=== PATIENT | male | born 1970 | race Caucasian/White ===

== ENCOUNTER 2020-10-31 10:00 | Inpatient (IN) ==
[2020-10-31] MEDS ORDERED: ONDANSETRON 4 MG/2 ML VIAL IV STA (12:59)
[2020-10-31] MEDS ORDERED: SODIUM CHLORIDE 0.9% 1,000 ML IV STA (12:59)
[2020-10-31] MEDS ORDERED: MORPHINE 2 MG/1 ML SYRINGE IV STA (13:00)
[2020-10-31] MEDS ORDERED: METOCLOPRAMIDE 10 MG/2 ML VIAL IV STA (13:00)
[2020-10-31 13:09] LABS: Basophils # 0.1 10*3/uL (0.0-0.2); Basophils % 0.4 % (0.0-0.8); Eosinophils % 0.2 % (0.00-10.9); Hematocrit 48.1 VOL% (42.0-52.0); Hemoglobin 15.6 GM/DL (14.0-18.0); Immature Granulocytes % 0.4 %; Immature Granulocytes Absolute 0.05 #; Lymphocytes # 1.1 10*3/uL (1.4-4.0); Mean Corpuscular HGB Conc 32.4 GM/DL (32-36); Mean Corpuscular Volume 84.7 FL (87-102); Mean Platelet Volume 9.9 FL (9.6-12.0); Monocytes % 4.7 % (1.7-12.7); Neutrophils % 86.3 % (38.7-73.9); Platelet Count 265 T/CUMM (130-400); Red Blood Count 5.68 MC/CUMM (3.8-5.5); Red Cell Distribution Width 14.1 % (9.3-17.3); White Blood Count 13.1 T/CUMM (4-12)
[2020-10-31 13:29] LABS: Albumin 3.7 G/DL (3.4-5.0); Bilirubin,Total 0.7 MG/DL (0.20-1.00); Calcium 9.3 MG/DL (8.5-10.1); Osmolality,Calculated 275.8 MOS/KG (273-304); Potassium 4.2 MMOL/L (3.5-5.1)
[2020-10-31 15:43] LABS: INR 2.4
[2020-10-31] MEDS ORDERED: HYDROmorphone 2 MG/1 ML VIAL IV PRN ×2 (15:49)
[2020-10-31] MEDS ORDERED: ONDANSETRON 4 MG/2 ML VIAL IV PRN (15:49)
[2020-10-31] MEDS ORDERED: BISACODYL 5 MG TABLET PO PRN (15:49)
[2020-10-31] MEDS ORDERED: KETOROLAC 30 MG/1 ML VIAL IV PRN (15:58)
[2020-10-31 16:08] LABS: PT Patient Result 25.5 SECS (10.5-12.0)
[2020-10-31] MEDS ORDERED: SODIUM CHLORIDE 0.9% 1,000 ML IV PRN ×2 (16:32→16:34)
[2020-10-31] MEDS ORDERED: GLUCAGON 1 MG VIAL IM PRN (16:34)
[2020-10-31] MEDS ORDERED: DEXTROSE 50% 25 GM/50 ML VIAL IV PRN (16:34)
[2020-10-31 17:26] LABS: Bilirubin,Urine Negative (Negative); Blood, Urine Negative (Negative); Glucose,Urine (UA) Negative (Negative); Ketones,Urine Negative (Negative); Mucus,Urine Occasional /LPF (Occasional); Nitrite,Urine Negative (Negative); Protein,Urine Negative; Urine Appearance CLEAR (Clear); Urine Color Yellow (Yellow); Urine Specific Gravity 1.024 (1.001-1.035); Urine Urobilinogen < 2.0 EU/DL (0.2-1.0)
[2020-10-31] MEDS: LACTATED RINGERS 1,000 ML IV SCH (18:18)
[2020-10-31] MEDS: INSULIN REGULAR 100 UNIT/ML SUBCUT SCH (23:03)
[2020-11-01 05:00] LABS: Basophils % 0.5 % (0.0-0.8); Eosinophils # 0.1 10*3/uL (0.0-0.87); Eosinophils % 0.9 % (0.00-10.9); Hemoglobin 13.8 GM/DL (14.0-18.0); Immature Granulocytes % 0.4 %; Immature Granulocytes Absolute 0.03 #; Lymphocytes # 1.5 10*3/uL (1.4-4.0); Lymphocytes % 18.7 % (21.2-54.2); Mean Corpuscular HGB Conc 32.1 GM/DL (32-36); Mean Corpuscular Volume 86.7 FL (87-102); Mean Platelet Volume 9.7 FL (9.6-12.0); Neutrophils % 71.5 % (38.7-73.9); Platelet Count 231 T/CUMM (130-400); Red Blood Count 4.96 MC/CUMM (3.8-5.5); Red Cell Distribution Width 14.4 % (9.3-17.3); White Blood Count 8.2 T/CUMM (4-12)
[2020-11-01 05:20] LABS: INR 1.7; PT Patient Result 18.3 SECS (10.5-12.0)
[2020-11-01 05:26] LABS: Osmolality,Calculated 279.5 MOS/KG (273-304); Potassium 3.9 MMOL/L (3.5-5.1)
[2020-11-01] MEDS: INSULIN REGULAR 100 UNIT/ML SUBCUT SCH ×4 (10:41→21:35)
[2020-11-01] MEDS: LACTATED RINGERS 1,000 ML IV SCH ×4 (10:41→23:08)
[2020-11-01] MEDS: PANTOPRAZOLE 40 MG TABLET PO SCH (10:43)
[2020-11-01] MEDS: ACETAMINOPHEN 325 MG TABLET PO PRN (10:53)
[2020-11-01] MEDS ORDERED: DEXTROSE 50% 25 GM/50 ML VIAL IV PRN (14:20)
[2020-11-01] MEDS ORDERED: GLUCAGON 1 MG VIAL IM PRN (14:20)
[2020-11-01] MEDS: cloNIDine 0.1 MG TABLET PO SCH (21:47)
[2020-11-01] MEDS: EZETIMIBE 10 MG TABLET PO SCH (21:47)
[2020-11-01] MEDS: HydrOXYzine PAMOATE 50 MG CAPSULE PO PRN (23:05)
[2020-11-02] MEDS: ACETAMINOPHEN 325 MG TABLET PO PRN (04:45)
[2020-11-02 04:56] LABS: Basophils % 0.4 % (0.0-0.8); Eosinophils # 0.1 10*3/uL (0.0-0.87); Eosinophils % 1.8 % (0.00-10.9); Hematocrit 43.1 VOL% (42.0-52.0); Hemoglobin 13.6 GM/DL (14.0-18.0); Immature Granulocytes % 0.4 %; Immature Granulocytes Absolute 0.03 #; Lymphocytes # 1.3 10*3/uL (1.4-4.0); Lymphocytes % 19.1 % (21.2-54.2); Mean Corpuscular HGB Conc 31.6 GM/DL (32-36); Mean Corpuscular Volume 87.8 FL (87-102); Mean Platelet Volume 9.9 FL (9.6-12.0); Monocytes % 6.5 % (1.7-12.7); Neutrophils % 71.8 % (38.7-73.9); Platelet Count 220 T/CUMM (130-400); Red Blood Count 4.91 MC/CUMM (3.8-5.5); Red Cell Distribution Width 14.1 % (9.3-17.3); White Blood Count 6.8 T/CUMM (4-12)
[2020-11-02 05:12] LABS: INR 1.5; PT Patient Result 16.1 SECS (10.5-12.0)
[2020-11-02 05:29] LABS: Calcium 8.9 MG/DL (8.5-10.1); Osmolality,Calculated 280.4 MOS/KG (273-304); Potassium 3.9 MMOL/L (3.5-5.1)
[2020-11-02] MEDS: ENOXAPARIN 40 MG/0.4 ML SYRINGE SUBCUT SCH (08:03)
[2020-11-02] MEDS: OMEGA 3 ACID ETHYL ESTERS 1 GM CAPSULE PO SCH (08:04)
[2020-11-02] MEDS: VENLAFAXINE XR 75 MG CAPSULE PO SCH (08:04)
[2020-11-02] MEDS: INSULIN REGULAR 100 UNIT/ML SUBCUT SCH ×4 (08:04→21:37)
[2020-11-02] MEDS: PANTOPRAZOLE 40 MG TABLET PO SCH (08:04)
[2020-11-02] MEDS: ROSUVASTATIN 10 MG TABLET PO SCH (08:04)
[2020-11-02] MEDS: LACTATED RINGERS 1,000 ML IV SCH ×2 (08:04→17:27)
[2020-11-02] MEDS: lisinopriL 5 MG TABLET PO SCH (08:04)
[2020-11-02] MEDS: cloNIDine 0.1 MG TABLET PO SCH (21:36)
[2020-11-02] MEDS: EZETIMIBE 10 MG TABLET PO SCH (21:36)
[2020-11-02] MEDS: HydrOXYzine PAMOATE 50 MG CAPSULE PO PRN (21:36)
[2020-11-03] MEDS: LACTATED RINGERS 1,000 ML IV SCH (04:53)
[2020-11-03 07:20] VITALS: BP 106/60
[2020-11-03] MEDS: lisinopriL 5 MG TABLET PO SCH (08:27)
[2020-11-03] MEDS: ROSUVASTATIN 10 MG TABLET PO SCH (08:27)
[2020-11-03] MEDS: VENLAFAXINE XR 75 MG CAPSULE PO SCH (08:27)
[2020-11-03] MEDS: OMEGA 3 ACID ETHYL ESTERS 1 GM CAPSULE PO SCH (08:27)
[2020-11-03] MEDS: INSULIN REGULAR 100 UNIT/ML SUBCUT SCH (08:27)
[2020-11-03] MEDS: ENOXAPARIN 40 MG/0.4 ML SYRINGE SUBCUT SCH (08:27)
[2020-11-03] MEDS: ACETAMINOPHEN 325 MG TABLET PO PRN (08:28)
[2020-11-03] MEDS: PANTOPRAZOLE 40 MG TABLET PO SCH (08:28)
[2020-11-03 09:15] LABS: Basophils % 0.6 % (0.0-0.8); Eosinophils # 0.2 10*3/uL (0.0-0.87); Eosinophils % 3.1 % (0.00-10.9); Hematocrit 43.6 VOL% (42.0-52.0); Hemoglobin 13.7 GM/DL (14.0-18.0); Immature Granulocytes % 0.3 %; Immature Granulocytes Absolute 0.02 #; Lymphocytes # 1.3 10*3/uL (1.4-4.0); Lymphocytes % 19.3 % (21.2-54.2); Mean Corpuscular HGB Conc 31.4 GM/DL (32-36); Mean Platelet Volume 9.6 FL (9.6-12.0); Monocytes % 5.1 % (1.7-12.7); Neutrophils % 71.6 % (38.7-73.9); Platelet Count 206 T/CUMM (130-400); Red Blood Count 5.01 MC/CUMM (3.8-5.5); White Blood Count 6.9 T/CUMM (4-12)
== END 2020-11-03 13:30 | disposition home health service (06) | DRG 394 ==
LOC: N.EDINP 10:00 → N.ED 10:00 → N.3E 17:10
PROVIDERS: ADMIT Surgery; ATTEND Surgery